=== PATIENT | female | born 1945 | race Caucasian/White ===

== ENCOUNTER 2017-11-24 23:11 | Emergency (ER) | payer MEDICARE ==
[~2017-11-24] VITALS: Ht 167.6 cm; Wt 102.1 kg
[~2017-11-24 23:11] MED LIST: ASPIRIN325 M2 PO; LIPITOR10 MG PO; MAXZIDE 50 MG-71 TA1 PO; PRAVASTATIN SOD20 MG PO; Synthroid,Levo50 MCG PO; VASOTEC20 MG PO; VITAMIN D1000 IU PO; XANAX0.5 MG PO; ZYLOPRIM100 MG PO
[2017-11-24] MEDS ORDERED: LEXAPRO10 MG PO (23:26)
[2017-11-24] MEDS ORDERED: TOPROL XL25 MG PO (23:26)
[2017-11-25 00:28] LABS: HEMATOCRIT 51.2 % (37.0-47.0); HEMOGLOBIN 17.2 g/dl (12.0-16.0); MEAN CELL VOLUME 91.4 fl (81.0-99.0); MEAN CORPUSCULAR HGB 30.7 pg (27.0-31.0); MEAN CORPUSCULAR HGB CONC 33.6 g/dl (33.0-37.0); MEAN PLATELET VOLUME 9.2 fl (9.6-12.3); PLATELET COUNT AUTOMATED 206 10*3/uL (130-400); RED CELL DISTRI WIDTH 13.7 % (0-14.5); WHITE BLOOD COUNT 13.8 10*3/uL (4.8-10.8)
[2017-11-25 00:37] LABS: BILIRUBIN NEGATIVE (NEGATIVE); BLOOD NEGATIVE (NEGATIVE); CLARITY SL CLOUDY (CLEAR); COLOR YELLOW (YELLOW); GLUCOSE NEGATIVE (NEGATIVE); KETONE TRACE (NEGATIVE); LEUKO ESTERASE 1+ (NEGATIVE); NITRITE NEGATIVE (NEGATIVE); PH 5.5 (5.0-9.0); UROBILINOGEN 0.2 E.U./dl (0.2-1.0)
[2017-11-25 00:45] LABS: ALBUMIN 3.6 gm/dl (3.1-4.5); ALKALINE PHOSPHATASE 73 U/L (45-117); BUN 29 mg/dl (7-24); CHLORIDE 101 mmol/L (98-107); CPK 40 U/L (26-192); CREATININE 1.04 mg/dL (0.55-1.02); LIPASE 137 U/L (73-393); POTASSIUM 3.5 mmol/L (3.5-5.1); SGOT/AST 22 IU/L (3-35); SGPT/ALT 25 U/L (12-78); SODIUM 138 mmol/L (136-145); TOTAL PROTEIN 7.5 gm/dL (6.4-8.2)
[2017-11-25 00:47] LABS: INTERNATIONAL NORM RATIO 1.1 (2.0-3.5)
[2017-11-25 00:49] LABS: PLATELET SUFFICIENCY NORMAL (NORMAL); TOTAL CELLS COUNTED 100 #CELLS
[2017-11-25 00:51] LABS: THYROID STIM HORMONE (HS) 0.902 uIU/ml (0.358-4.75)
[2017-11-25 00:53] LABS: TROPONIN I < 0.015 ng/ml (<0.045)
[2017-11-25 00:56] LABS: BACTERIA 2+
== END 2017-11-25 03:21 | disposition home or self-care (01) ==
LOC: ED 23:11
PROVIDERS: Emergency Medicine Emergency Medical Services
DX: R55 Syncope and collapse (principal); Z98.890 Other specified postprocedural states; Z79.82 Long term (current) use of aspirin; Z79.899 Other long term (current) drug therapy; Z88.0 Allergy status to penicillin

== ENCOUNTER → 2017-12-06 | Outpatient (CLI) | payer MEDICARE ==
[~2017-12-06] MED LIST changes: +LEXAPRO10 MG PO; +TOPROL XL25 MG PO
== END | disposition home or self-care (01) ==
LOC: LAB 11:09
DX: N39.0 Urinary tract infection, site not specified (principal)

== ENCOUNTER → 2019-05-06 | Outpatient (CLI) | payer MEDICARE | END | disposition home or self-care (01) | LOC: CARD 09:25 | DX: I65.23 Occlusion and stenosis of bilateral carotid arteries (principal); R06.02 Shortness of breath; R42 Dizziness and giddiness; E11.9 Type 2 diabetes mellitus without complications; I10 Essential (primary) hypertension ==

== ENCOUNTER → 2020-08-16 | Outpatient (CLI) | payer MEDICARE | END | disposition home or self-care (01) | LOC: MAMMO 16:31 | PROVIDERS: ATTEND Internal Medicine | DX: Z12.31 Encounter for screening mammogram for malignant neoplasm of breast (principal) ==

== ENCOUNTER → 2021-02-01 | Outpatient (CLI) | payer MEDICARE ==
[2021-02-01 10:44] LABS: BASO % 0.3 % (0.0-1.0); EOS # 0.1 10*3/uL (0.0-0.4); EOS % 0.7 % (1.0-4.0); HEMATOCRIT 40.6 % (37.0-47.0); LYMPH # 2.2 10*3/uL (1.3-4.4); LYMPH % 17.8 % (27.0-41.0); MEAN CELL VOLUME 92.1 fl (81.0-99.0); MEAN CORPUSCULAR HGB 29.5 pg (27.0-31.0); MEAN PLATELET VOLUME 8.2 fl (9.6-12.3); MONO # 1.1 10*3/uL (0.1-1.0); MONO % 9.4 % (3.0-9.0); NEUT # 8.6 10*3/uL (2.3-7.9); NEUT % 71.2 % (47.0-73.0); PLATELET COUNT AUTOMATED 284 10*3/uL (130-400); RED BLOOD COUNT 4.41 10*6/uL (4.10-5.10); RED CELL DISTRI WIDTH 15.1 % (0-14.5); WHITE BLOOD COUNT 12.1 10*3/uL (4.8-10.8)
[2021-02-01 11:20] LABS: ALBUMIN 2.8 gm/dl (3.1-4.5); CREATININE 1.1 mg/dL (0.55-1.02); FREE T4 1.35 ng/dl (0.76-1.46); TOTAL PROTEIN 7.5 gm/dL (6.4-8.2)
[2021-02-01 11:25] LABS: THYROID STIM HORMONE (HS) 1.2 uIU/ml (0.358-4.75)
[2021-02-01 12:03] LABS: VITAMIN D, 25-HYDROXY 45.2 ng/mL (30-100)
== END | disposition home or self-care (01) ==
LOC: LAB 10:23
PROVIDERS: ATTEND Internal Medicine
DX: Z00.00 Encounter for general adult medical examination without abnormal findings (principal); I10 Essential (primary) hypertension; E55.9 Vitamin D deficiency, unspecified; E11.9 Type 2 diabetes mellitus without complications; E78.2 Mixed hyperlipidemia

== ENCOUNTER → 2021-02-17 | Outpatient (CLI) | payer MEDICARE | END | disposition home or self-care (01) | LOC: US 08:17 | PROVIDERS: ATTEND Internal Medicine | DX: R10.9 Unspecified abdominal pain (principal) ==

== ENCOUNTER 2021-04-06 13:56 | Emergency (ER) | payer MEDICARE ==
[~2021-04-06] VITALS: Wt 87.1 kg
[2021-04-06 14:43] LABS: BILIRUBIN Negative (Negative); BLOOD 3+ (Negative); CLARITY Turbid (Clear); COLOR Dark Yellow (Yellow); GLUCOSE Negative (Negative); KETONE Trace (Negative); LEUKO ESTERASE 3+ (Negative); NITRITE Negative (Negative); PH 5.5 (4.5-8.0); SPECIFIC GRAVITY 1.025 (1.001-1.030)
[2021-04-06 14:54] LABS: BACTERIA 3+; WBC TNTC wbc/hpf (0-5)
[2021-04-06] MEDS ORDERED: SEPTDS PO (15:36)
== END 2021-04-06 16:30 | disposition home or self-care (01) ==
LOC: ED 13:56
PROVIDERS: Emergency Medicine
DX: N39.0 Urinary tract infection, site not specified (principal); F41.9 Anxiety disorder, unspecified; Z88.8 Allergy status to other drugs, medicaments and biological substances; Z88.0 Allergy status to penicillin; Z79.899 Other long term (current) drug therapy; Z79.82 Long term (current) use of aspirin

== ENCOUNTER 2021-04-11 12:20 | Inpatient (IN) | payer MEDICARE ==
[~2021-04-11] VITALS: Ht 167.6 cm; Wt 86.6 kg
[~2021-04-11 12:20] MED LIST changes: +SEPTDS PO
[2021-04-11 12:24] VITALS: BP 129/61
[2021-04-11 12:52] LABS: BASO % 0.3 % (0.0-1.0); EOS # 0.1 10*3/uL (0.0-0.4); EOS % 1.2 % (1.0-4.0); HEMATOCRIT 39.7 % (37.0-47.0); LYMPH # 1.9 10*3/uL (1.3-4.4); LYMPH % 16.5 % (27.0-41.0); MEAN CELL VOLUME 93.9 fl (81.0-99.0); MEAN PLATELET VOLUME 8.8 fl (9.6-12.3); MONO % 8.4 % (3.0-9.0); NEUT # 8.5 10*3/uL (2.3-7.9); NEUT % 73.2 % (47.0-73.0); PLATELET COUNT AUTOMATED 305 10*3/uL (130-400); RED BLOOD COUNT 4.23 10*6/uL (4.10-5.10); WHITE BLOOD COUNT 11.6 10*3/uL (4.8-10.8)
[2021-04-11 13:09] LABS: ALBUMIN 2.6 gm/dl (3.1-4.5); ALKALINE PHOSPHATASE 61 U/L (45-117); BUN 20 mg/dl (7-24); CHLORIDE 107 mmol/L (98-107); CREATININE 1.08 mg/dL (0.55-1.02); LIPASE 111 U/L (73-393); POTASSIUM 4.1 mmol/L (3.5-5.1); SGOT/AST 10 IU/L (3-35); SGPT/ALT 8 U/L (12-78); SODIUM 139 mmol/L (136-145); TOTAL PROTEIN 7.4 gm/dL (6.4-8.2)
[2021-04-11 13:10] LABS: TROPONIN I < 0.015 ng/ml (<0.045)
[2021-04-11 14:46] LABS: BILIRUBIN Negative (Negative); BLOOD 2+ (Negative); CLARITY Clear (Clear); COLOR Yellow (Yellow); GLUCOSE Negative (Negative); KETONE Negative (Negative); LEUKO ESTERASE 2+ (Negative); NITRITE Negative (Negative); PH 7.5 (4.5-8.0); SPECIFIC GRAVITY >= 1.030 (1.001-1.030)
[2021-04-11 15:09] LABS: WBC 51-100 wbc/hpf (0-5)
[2021-04-11 15:53] VITALS: BP 130/70
[2021-04-11 17:20] VITALS: BP 149/69
[2021-04-11] MEDS ORDERED: ENALAPRIL10 MG PO (17:39)
[2021-04-11] MEDS ORDERED: METOPROLOL25 MG PO (17:41)
[2021-04-11] MEDS ORDERED: Lopressor25 MG PO (17:41)
[2021-04-11 20:00] VITALS: BP 123/53
[2021-04-11 20:18] LABS: BILIRUBIN Negative (Negative); BLOOD 2+ (Negative); CLARITY Clear (Clear); COLOR Yellow (Yellow); GLUCOSE Negative (Negative); KETONE Negative (Negative); LEUKO ESTERASE 2+ (Negative); NITRITE Negative (Negative); SPECIFIC GRAVITY >= 1.030 (1.001-1.030)
[2021-04-11 20:49] LABS: BACTERIA TRACE; RBC 21-30 rbc/hpf (0-2); WBC 51-100 wbc/hpf (0-5)
[2021-04-12] VITALS: BP 130/56
[2021-04-12 06:04] LABS: BASO % 0.3 % (0.0-1.0); EOS # 0.1 10*3/uL (0.0-0.4); EOS % 0.8 % (1.0-4.0); HEMATOCRIT 36.6 % (37.0-47.0); LYMPH # 1.4 10*3/uL (1.3-4.4); LYMPH % 14.7 % (27.0-41.0); MEAN CELL VOLUME 95.1 fl (81.0-99.0); MEAN CORPUSCULAR HGB 29.6 pg (27.0-31.0); MEAN CORPUSCULAR HGB CONC 31.1 g/dl (33.0-37.0); MEAN PLATELET VOLUME 8.7 fl (9.6-12.3); MONO # 0.8 10*3/uL (0.1-1.0); MONO % 8.5 % (3.0-9.0); NEUT # 7.3 10*3/uL (2.3-7.9); NEUT % 75.5 % (47.0-73.0); PLATELET COUNT AUTOMATED 238 10*3/uL (130-400); RED BLOOD COUNT 3.85 10*6/uL (4.10-5.10); RED CELL DISTRI WIDTH 13.9 % (0-14.5); WHITE BLOOD COUNT 9.7 10*3/uL (4.8-10.8)
[2021-04-12 06:16] LABS: ALBUMIN 2.4 gm/dl (3.1-4.5); ALKALINE PHOSPHATASE 51 U/L (45-117); BUN 13 mg/dl (7-24); CHLORIDE 108 mmol/L (98-107); CREATININE 0.68 mg/dL (0.55-1.02); SGOT/AST 9 IU/L (3-35); SGPT/ALT 8 U/L (12-78); SODIUM 137 mmol/L (136-145); TOTAL PROTEIN 6.2 gm/dL (6.4-8.2)
[2021-04-12 08:00] VITALS: BP 136/50
[2021-04-12 12:00] VITALS: BP 138/60
[2021-04-12 16:21] VITALS: BP 156/70
[2021-04-12 20:06] VITALS: BP 129/49
[2021-04-13] VITALS (9 sets, daily range): BP systolic 90–144; BP diastolic 34–72
[2021-04-13 10:44] LABS: ACT PARTIAL THROMBO TIME 30.5 SECONDS (20.0-32.1); INTERNATIONAL NORM RATIO 1.2 (2.0-3.5)
[2021-04-14] VITALS: BP 105/51
[2021-04-14 06:26] LABS: HEMATOCRIT 35.3 % (37.0-47.0); MEAN CELL VOLUME 96.7 fl (81.0-99.0); MEAN CORPUSCULAR HGB 29.6 pg (27.0-31.0); MEAN CORPUSCULAR HGB CONC 30.6 g/dl (33.0-37.0); MEAN PLATELET VOLUME 8.8 fl (9.6-12.3); PLATELET COUNT AUTOMATED 291 10*3/uL (130-400); RED BLOOD COUNT 3.65 10*6/uL (4.10-5.10); RED CELL DISTRI WIDTH 13.8 % (0-14.5); WHITE BLOOD COUNT 20.3 10*3/uL (4.8-10.8)
[2021-04-14 07:09] LABS: BUN 12 mg/dl (7-24); CHLORIDE 108 mmol/L (98-107); CREATININE 0.73 mg/dL (0.55-1.02); SODIUM 139 mmol/L (136-145)
[2021-04-14 08:00] VITALS: BP 114/72
[2021-04-14 08:00] LABS: BURR CELLS FEW; PLATELET SUFFICIENCY NORMAL (NORMAL); POLYCHROMASIA SLIGHT; TOTAL CELLS COUNTED 100 #CELLS
[2021-04-14 12:00] VITALS: BP 128/52
[2021-04-14 16:00] VITALS: BP 118/53
[2021-04-14 20:00] VITALS: BP 132/62
[2021-04-15] VITALS: BP 119/58
[2021-04-15 05:55] LABS: ALBUMIN 1.9 gm/dl (3.1-4.5); ALKALINE PHOSPHATASE 45 U/L (45-117); BUN 12 mg/dl (7-24); CHLORIDE 110 mmol/L (98-107); POTASSIUM 3.5 mmol/L (3.5-5.1); SGOT/AST 8 IU/L (3-35); SGPT/ALT 8 U/L (12-78); SODIUM 140 mmol/L (136-145); TOTAL PROTEIN 5.6 gm/dL (6.4-8.2)
[2021-04-15 05:57] LABS: BASO % 0.2 % (0.0-1.0); EOS % 0.3 % (1.0-4.0); HEMATOCRIT 32.7 % (37.0-47.0); LYMPH # 1.4 10*3/uL (1.3-4.4); LYMPH % 11.5 % (27.0-41.0); MEAN CELL VOLUME 98.2 fl (81.0-99.0); MEAN CORPUSCULAR HGB 29.7 pg (27.0-31.0); MEAN CORPUSCULAR HGB CONC 30.3 g/dl (33.0-37.0); MEAN PLATELET VOLUME 8.6 fl (9.6-12.3); NEUT # 9.9 10*3/uL (2.3-7.9); NEUT % 79.6 % (47.0-73.0); PLATELET COUNT AUTOMATED 246 10*3/uL (130-400); RED BLOOD COUNT 3.33 10*6/uL (4.10-5.10); RED CELL DISTRI WIDTH 14.1 % (0-14.5); WHITE BLOOD COUNT 12.5 10*3/uL (4.8-10.8)
[2021-04-15 08:00] VITALS: BP 145/76
[2021-04-15 12:00] VITALS: BP 144/74
[2021-04-15 16:00] VITALS: BP 149/63
[2021-04-15 20:00] VITALS: BP 149/86
[2021-04-16] VITALS: BP 142/73
[2021-04-16 06:01] LABS: BASO % 0.1 % (0.0-1.0); EOS # 0.1 10*3/uL (0.0-0.4); EOS % 1.5 % (1.0-4.0); HEMATOCRIT 32.9 % (37.0-47.0); LYMPH # 1.4 10*3/uL (1.3-4.4); LYMPH % 16.1 % (27.0-41.0); MEAN CELL VOLUME 95.6 fl (81.0-99.0); MEAN CORPUSCULAR HGB 29.4 pg (27.0-31.0); MEAN CORPUSCULAR HGB CONC 30.7 g/dl (33.0-37.0); MEAN PLATELET VOLUME 8.4 fl (9.6-12.3); MONO # 0.8 10*3/uL (0.1-1.0); MONO % 8.8 % (3.0-9.0); NEUT # 6.3 10*3/uL (2.3-7.9); PLATELET COUNT AUTOMATED 270 10*3/uL (130-400); RED BLOOD COUNT 3.44 10*6/uL (4.10-5.10); RED CELL DISTRI WIDTH 13.7 % (0-14.5); WHITE BLOOD COUNT 8.7 10*3/uL (4.8-10.8)
[2021-04-16 06:16] LABS: CHLORIDE 112 mmol/L (98-107); POTASSIUM 3.4 mmol/L (3.5-5.1); SODIUM 141 mmol/L (136-145)
[2021-04-16 06:36] LABS: BUN 8 mg/dl (7-24); CREATININE 0.53 mg/dL (0.55-1.02)
[2021-04-16 08:00] VITALS: BP 147/62
[2021-04-16 12:00] VITALS: BP 142/65
[2021-04-16 16:00] VITALS: BP 146/82
[2021-04-16 20:00] VITALS: BP 138/66
[2021-04-17 12:00] VITALS: BP 136/74
[2021-04-17 16:00] VITALS: BP 152/63
[2021-04-17 20:00] VITALS: BP 147/58
[2021-04-18] VITALS: BP 126/61
[2021-04-18 08:00] VITALS: BP 143/66
[2021-04-18 12:00] VITALS: BP 136/74
[2021-04-18 16:00] VITALS: BP 149/57
[2021-04-18 20:00] VITALS: BP 149/68
[2021-04-19] VITALS: BP 136/53
[2021-04-19 06:17] LABS: BASO % 0.4 % (0.0-1.0); EOS # 0.4 10*3/uL (0.0-0.4); EOS % 3.6 % (1.0-4.0); HEMATOCRIT 38.9 % (37.0-47.0); MEAN CELL VOLUME 93.1 fl (81.0-99.0); MEAN CORPUSCULAR HGB 29.2 pg (27.0-31.0); MEAN CORPUSCULAR HGB CONC 31.4 g/dl (33.0-37.0); MEAN PLATELET VOLUME 8.3 fl (9.6-12.3); MONO % 9.7 % (3.0-9.0); NEUT # 6.6 10*3/uL (2.3-7.9); PLATELET COUNT AUTOMATED 348 10*3/uL (130-400); RED BLOOD COUNT 4.18 10*6/uL (4.10-5.10); WHITE BLOOD COUNT 10.2 10*3/uL (4.8-10.8)
[2021-04-19 06:38] LABS: BUN 11 mg/dl (7-24); CHLORIDE 106 mmol/L (98-107); CREATININE 0.64 mg/dL (0.55-1.02); POTASSIUM 2.9 mmol/L (3.5-5.1); SODIUM 139 mmol/L (136-145)
[2021-04-19 08:00] VITALS: BP 134/65
[2021-04-19 12:00] VITALS: BP 121/58
[2021-04-19 16:14] VITALS: BP 135/70
[2021-04-19 20:10] VITALS: BP 143/80
[2021-04-20] VITALS: BP 138/75
[2021-04-20 06:33] LABS: BUN 11 mg/dl (7-24); CHLORIDE 108 mmol/L (98-107); CREATININE 0.64 mg/dL (0.55-1.02); POTASSIUM 3.8 mmol/L (3.5-5.1); SODIUM 139 mmol/L (136-145)
[2021-04-20 08:00] VITALS: BP 119/83
[2021-04-20] MEDS ORDERED: CIPRO500 MG PO (08:13)
[2021-04-20] MEDS ORDERED: DOK COLACE100 MG PO (08:13)
[2021-04-20 12:00] VITALS: BP 139/71
[2021-04-20 16:00] VITALS: BP 136/62
== END 2021-04-20 16:29 | DRG 330 ==
LOC: ED 12:20 → 4E 15:55 → EDHOLD 15:55 → 4E 16:55
PROVIDERS: Emergency Medicine; Nurse Anesthetist, Certified Registered; ADMIT Internal Medicine; ATTEND Internal Medicine
PROC: 0D1N0Z4 Bypass Sigmoid Colon to Cutaneous, Open Approach (ICD-10-PCS; principal; 2021-04-13)
PROC: 0DTN0ZZ Resection of Sigmoid Colon, Open Approach (ICD-10-PCS; 2021-04-13)
PROC: 0DJD4ZZ Inspection of Lower Intestinal Tract, Percutaneous Endoscopic Approach (ICD-10-PCS; 2021-04-13)
PROC: 0DB80ZZ Excision of Small Intestine, Open Approach (ICD-10-PCS; 2021-04-13)
DX: K57.20 Diverticulitis of large intestine with perforation and abscess without bleeding (principal); N32.1 Vesicointestinal fistula; N39.0 Urinary tract infection, site not specified; E44.1 Mild protein-calorie malnutrition; Z20.822 Contact with and (suspected) exposure to COVID-19; R62.7 Adult failure to thrive; E87.6 Hypokalemia; E03.9 Hypothyroidism, unspecified; E78.2 Mixed hyperlipidemia; I10 Essential (primary) hypertension; E11.9 Type 2 diabetes mellitus without complications; B96.20 Unspecified Escherichia coli [E. coli] as the cause of diseases classified elsewhere; Z88.0 Allergy status to penicillin; Z88.8 Allergy status to other drugs, medicaments and biological substances; Z79.899 Other long term (current) drug therapy; Z68.30 Body mass index [BMI] 30.0-30.9, adult

== ENCOUNTER → 2021-05-03 | Day surgery (SDC) | payer MEDICARE ==
[~2021-05-03] VITALS: Ht 167.6 cm; Wt 83.9 kg
[~2021-05-03] MED LIST changes: +CIPRO500 MG PO; +DOK COLACE100 MG PO; +ENALAPRIL10 MG PO; +Lopressor25 MG PO; +METOPROLOL25 MG PO
[2021-05-03 11:42] VITALS: BP 127/57
[2021-05-03 11:53] VITALS: BP 102/44
[2021-05-03 12:03] VITALS: BP 103/37
[2021-05-03 12:23] VITALS: BP 122/50
== END | disposition home or self-care (01) ==
LOC: SDC 05-02 12:30
PROVIDERS: ATTEND Surgery
DX: Z48.03 Encounter for change or removal of drains (principal); N81.6 Rectocele; I12.9 Hypertensive chronic kidney disease with stage 1 through stage 4 chronic kidney disease, or unspecified chronic kidney disease; E11.22 Type 2 diabetes mellitus with diabetic chronic kidney disease; N18.9 Chronic kidney disease, unspecified; E03.9 Hypothyroidism, unspecified; F32.9 Major depressive disorder, single episode, unspecified; M10.9 Gout, unspecified; F41.9 Anxiety disorder, unspecified; Z79.899 Other long term (current) drug therapy

== ENCOUNTER → 2021-08-15 | Outpatient (CLI) | payer MEDICARE ==
[2021-08-15 09:41] LABS: BASO % 0.4 % (0.0-1.0); EOS # 0.3 10*3/uL (0.0-0.4); EOS % 3.4 % (1.0-4.0); LYMPH # 2.4 10*3/uL (1.3-4.4); LYMPH % 30.8 % (27.0-41.0); MEAN CELL VOLUME 93.6 fl (81.0-99.0); MEAN CORPUSCULAR HGB 29.1 pg (27.0-31.0); MEAN CORPUSCULAR HGB CONC 31.1 g/dl (33.0-37.0); MEAN PLATELET VOLUME 8.8 fl (9.6-12.3); MONO # 0.6 10*3/uL (0.1-1.0); MONO % 8.2 % (3.0-9.0); NEUT # 4.4 10*3/uL (2.3-7.9); NEUT % 56.9 % (47.0-73.0); PLATELET COUNT AUTOMATED 180 10*3/uL (130-400); RED BLOOD COUNT 4.81 10*6/uL (4.10-5.10); RED CELL DISTRI WIDTH 14.5 % (0-14.5); WHITE BLOOD COUNT 7.7 10*3/uL (4.8-10.8)
[2021-08-15 10:25] LABS: BUN 21 mg/dl (7-24); CHLORIDE 111 mmol/L (98-107); CREATININE 0.69 mg/dL (0.55-1.02); POTASSIUM 3.7 mmol/L (3.5-5.1); SODIUM 142 mmol/L (136-145)
== END | disposition home or self-care (01) ==
LOC: LAB 09:22
PROVIDERS: ATTEND Internal Medicine
DX: I12.9 Hypertensive chronic kidney disease with stage 1 through stage 4 chronic kidney disease, or unspecified chronic kidney disease (principal); N18.30 Chronic kidney disease, stage 3 unspecified

== ENCOUNTER → 2021-12-04 | Day surgery (SDC) | payer MEDICARE ==
[~2021-12-04] MED LIST changes: +CENTRUM SILVER1 EAC1 PO
[2021-12-04 06:43] VITALS: BP 157/82
[2021-12-04 07:50] VITALS: BP 101/48
[2021-12-04 08:05] VITALS: BP 103/61
[2021-12-04 08:20] VITALS: BP 129/58
== END | disposition home or self-care (01) ==
LOC: SDC 11-07 08:45
PROVIDERS: ATTEND Surgery
DX: Z12.11 Encounter for screening for malignant neoplasm of colon (principal); K57.30 Diverticulosis of large intestine without perforation or abscess without bleeding; I12.9 Hypertensive chronic kidney disease with stage 1 through stage 4 chronic kidney disease, or unspecified chronic kidney disease; E11.22 Type 2 diabetes mellitus with diabetic chronic kidney disease; N18.9 Chronic kidney disease, unspecified; F32.9 Major depressive disorder, single episode, unspecified; F41.9 Anxiety disorder, unspecified; Z88.0 Allergy status to penicillin; Z88.8 Allergy status to other drugs, medicaments and biological substances; Z20.822 Contact with and (suspected) exposure to COVID-19

== ENCOUNTER → 2022-03-14 | Outpatient (CLI) | payer MEDICARE | END | disposition home or self-care (01) | LOC: MAMMO 03-12 09:00 | PROVIDERS: ATTEND Internal Medicine | DX: Z12.31 Encounter for screening mammogram for malignant neoplasm of breast (principal); Z80.3 Family history of malignant neoplasm of breast ==

== ENCOUNTER → 2022-03-28 | Outpatient (CLI) | payer MEDICARE | END | disposition home or self-care (01) | LOC: RAD 13:16 | PROVIDERS: ATTEND Internal Medicine | DX: M85.88 Other specified disorders of bone density and structure, other site (principal); Z13.820 Encounter for screening for osteoporosis ==

== ENCOUNTER → 2022-08-09 | Outpatient (CLI) | payer MEDICARE ==
[2022-08-09 11:01] LABS: BASO % 0.4 % (0.0-1.0); EOS # 0.2 10*3/uL (0.0-0.4); EOS % 2.4 % (1.0-4.0); HEMATOCRIT 47.3 % (37.0-47.0); LYMPH # 1.9 10*3/uL (1.3-4.4); LYMPH % 23.9 % (27.0-41.0); MEAN CELL VOLUME 95.4 fl (81.0-99.0); MEAN CORPUSCULAR HGB 31.5 pg (27.0-31.0); MEAN PLATELET VOLUME 8.4 fl (9.6-12.3); MONO # 0.5 10*3/uL (0.1-1.0); MONO % 6.8 % (3.0-9.0); NEUT # 5.2 10*3/uL (2.3-7.9); NEUT % 66.1 % (47.0-73.0); PLATELET COUNT AUTOMATED 208 10*3/uL (130-400); RED BLOOD COUNT 4.96 10*6/uL (4.10-5.10); RED CELL DISTRI WIDTH 13.2 % (0-14.5); WHITE BLOOD COUNT 7.9 10*3/uL (4.8-10.8)
[2022-08-09 11:23] LABS: BUN 22 mg/dl (7-24); CHLORIDE 109 mmol/L (98-107); CHOLESTEROL 220 mg/dL (<200); CREATININE 0.78 mg/dL (0.55-1.02); POTASSIUM 3.8 mmol/L (3.5-5.1); SGOT/AST 16 IU/L (3-35); SGPT/ALT 20 U/L (12-78); SODIUM 141 mmol/L (136-145); TOTAL PROTEIN 7.5 gm/dL (6.4-8.2); TRIGLYCERIDES 155 mg/dl (<150)
[2022-08-09 11:30] LABS: ALKALINE PHOSPHATASE 70 U/L (45-117); FREE T4 1.22 ng/dl (0.76-1.46); LDL CHOLESTEROL 142 mg/dL (9-159)
[2022-08-09 12:23] LABS: VITAMIN D, 25-HYDROXY 36.9 ng/mL (30-100)
== END | disposition home or self-care (01) ==
LOC: CARD 09:57 → LAB 09:57 → CARD 10:00
PROVIDERS: ATTEND Internal Medicine
DX: I10 Essential (primary) hypertension (principal); E03.9 Hypothyroidism, unspecified; E11.9 Type 2 diabetes mellitus without complications; Z13.89 Encounter for screening for other disorder; Z13.0 Encounter for screening for diseases of the blood and blood-forming organs and certain disorders involving the immune mechanism; E55.9 Vitamin D deficiency, unspecified; Z13.1 Encounter for screening for diabetes mellitus; Z13.21 Encounter for screening for nutritional disorder; Z13.228 Encounter for screening for other metabolic disorders; Z13.29 Encounter for screening for other suspected endocrine disorder; Z13.6 Encounter for screening for cardiovascular disorders; Z13.9 Encounter for screening, unspecified

== ENCOUNTER 2023-04-18 16:01 | Emergency (ER) | payer MEDICARE ==
[~2023-04-18] VITALS: Ht 167.6 cm; Wt 97.5 kg
== END 2023-04-18 18:11 | disposition home or self-care (01) ==
LOC: ED 16:01
DX: S90.121A Contusion of right lesser toe(s) without damage to nail, initial encounter (principal); F41.9 Anxiety disorder, unspecified; F32.A Depression, unspecified; E78.00 Pure hypercholesterolemia, unspecified; I12.9 Hypertensive chronic kidney disease with stage 1 through stage 4 chronic kidney disease, or unspecified chronic kidney disease; E11.22 Type 2 diabetes mellitus with diabetic chronic kidney disease; N18.9 Chronic kidney disease, unspecified; Z88.0 Allergy status to penicillin; Z88.8 Allergy status to other drugs, medicaments and biological substances; Z90.49 Acquired absence of other specified parts of digestive tract; Z98.890 Other specified postprocedural states; Z90.710 Acquired absence of both cervix and uterus; X58.XXXA Exposure to other specified factors, initial encounter; Y93.89 Activity, other specified; Y92.89 Other specified places as the place of occurrence of the external cause; Y99.8 Other external cause status

== ENCOUNTER → 2023-08-26 | Outpatient (CLI) | payer MEDICARE | END | disposition home or self-care (01) | LOC: MAMMO 10:18 | PROVIDERS: ATTEND Internal Medicine | DX: Z12.31 Encounter for screening mammogram for malignant neoplasm of breast (principal) ==

== ENCOUNTER → 2023-10-30 | Outpatient (CLI) | payer MEDICARE ==
[2023-10-30 11:21] LABS: BASO % 0.3 % (0.0-1.0); EOS # 0.2 10*3/uL (0.0-0.4); EOS % 2.9 % (1.0-4.0); HEMATOCRIT 47.1 % (37.0-47.0); LYMPH # 2.1 10*3/uL (1.3-4.4); LYMPH % 27.1 % (27.0-41.0); MEAN CELL VOLUME 95.3 fl (81.0-99.0); MEAN CORPUSCULAR HGB CONC 32.5 g/dl (33.0-37.0); MEAN PLATELET VOLUME 8.8 fl (9.6-12.3); MONO # 0.5 10*3/uL (0.1-1.0); MONO % 6.5 % (3.0-9.0); NEUT # 4.9 10*3/uL (2.3-7.9); NEUT % 62.9 % (47.0-73.0); PLATELET COUNT AUTOMATED 214 10*3/uL (130-400); RED BLOOD COUNT 4.94 10*6/uL (4.10-5.10); RED CELL DISTRI WIDTH 13.7 % (0-14.5); WHITE BLOOD COUNT 7.8 10*3/uL (4.8-10.8)
[2023-10-30 11:45] LABS: ALKALINE PHOSPHATASE 60 U/L (46-116); BUN 13 mg/dl (9-23); CHLORIDE 108 mmol/L (98-107); CHOLESTEROL 214 mg/dL (<200); FREE T4 1.22 ng/dl (0.89-1.76); LDL CHOLESTEROL 137 mg/dL (9-159); POTASSIUM 3.6 mmol/L (3.4-5.1); SGPT/ALT 16 U/L (5-49); TRIGLYCERIDES 147 mg/dl (<150)
[2023-10-30 12:33] LABS: VITAMIN D, 25-HYDROXY 47.1 ng/mL (30-100)
== END | disposition home or self-care (01) ==
LOC: LAB 10:59
PROVIDERS: ATTEND Internal Medicine
DX: I10 Essential (primary) hypertension (principal); E55.9 Vitamin D deficiency, unspecified; F41.1 Generalized anxiety disorder; E78.2 Mixed hyperlipidemia; F33.0 Major depressive disorder, recurrent, mild; E11.9 Type 2 diabetes mellitus without complications